=== PATIENT | female | born 1985 | race Caucasian/White ===

== ENCOUNTER → 2017-02-17 | Outpatient (CLI) | payer BC ==
--- NOTE | 2017-02-17 17:02 | US ---
EXAMINATION: Transvaginal obstetric ultrasound HISTORY: Positive test COMPARISON: None TECHNIQUE: Grayscale, color Doppler, and spectral Doppler images obtained transvaginally. FINDINGS: There is a tiny cystic collection within the endometrial stripe likely a very early intrau terine gestational sac. The mean sac diameter measures 0.55 cm, this gives an estimated gestational age of 5 weeks and 1 day. The estimated date of delivery is 10/19/2017. Small cysts are noted within the ovaries bilaterally which otherwise appear normal. There is normal color and spectral Doppler flow. No adnexal masses. IMPRESSION: 1. Probable very early gestational sac within the uterus, corresponding to an estimated gestational age at 5 weeks and 1 day.
== END ==
LOC: MW.US 13:33
PROVIDERS: ATTEND Nurse Practitioner Family
DX: Z32.01 Encounter for pregnancy test, result positive (principal); R10.31 Right lower quadrant pain; Z3A.01 Less than 8 weeks gestation of pregnancy
CPT/HCPCS: 76817; 76817-26

== ENCOUNTER 2017-05-03 21:33 | Emergency (ER) | payer BC ==
[2017-05-03] MEDS ORDERED: Sodium Chloride 0.9% 10 ML Syringe FLUSH PRN (21:38)
[2017-05-03] MEDS ORDERED: Sodium Chloride 0.9% 2.5 ML Syringe FLUSH PRN (21:38)
--- NOTE | 2017-05-03 21:53 | EDM.PDOC ---
ED HPI GENERAL MEDICAL PROBLEM - General Chief Complaint: [employer] Problem Stated Complaint: VAGINAL BLEEDING Time Seen by Provider: 05/03/17 21:49 Source of Information: Reports: Patient History Limitations: Reports: No Limitations - History of Present Illness INITIAL COMMENTS - FREE TEXT/NARRATIVE: HISTORY AND PHYSICAL: [A 42-year-old female who is approximately 14 weeks 4 days into her . Reports abdominal pain since 10:00 this morning] History of Present Illness: [Patient was walking down the [place] at work and pain started to the pelvic area, Pain has been intermittent through the day, now pain is becoming more frequent She reports having clear to whitish discharge] Review of Systems: As per history of present illness and below otherwise all systems reviewed and negative. Past medical history: As per history of present illness and as reviewed below otherwise noncontributory. Surgical history: As per history of present illness and as reviewed below otherwise noncontributory. Social history: No reported history of drug or alcohol abuse. Family history: As per history of present illness and as reviewed below otherwise noncontributory. Physical exam: Alert oriented female who looks quite concerned. Answering questions appropriately HEENT: Atraumatic, normocehpalic, pupils reactive, negative for conjunctival pallor or scleral icterus, mucous membranes moist, throat clear, neck supple, nontender, trachea midline. Lungs: Clear to auscultation, breath sounds equal bilaterally, chest non tender. Heart: S1S2, regular, negative for clicks, rubs, or JVD. Abdomen: Soft, nondistended, nontender. Negative for masses or hepatossplenmegaly. Negative for costovertebral tenderness. Pelvis: Stable nontender. Genitourinary: Normal vaginal vault, cervical os is closed. Clear exudate and white exudate into the vaginal vault Rectal: Deferred Extremities: Atraumatic, negative for cords or calf pain. Neurovascular unremarkable. Neuro: Awake, alert, oriented. Cranial nerves II through XII unremarkable. Cerebellum unremarkable. Motor and sensory unremarkable throughout. Exam nonfocal. Diagnostics: [CBC CMP UA] Therapeutics: [] Impression: [Abdominal cramping] Plan: [] Tylenol for discomfort Followup with your F[employer]MENT K[employer]TER please call tomorrow for an appointment Definitive disposition and diagnosis as appropriate pending reevaluation and review of above. Onset: Today, Sudden Duration: Hour(s): (10 am pain started) Location: Reports: Abdomen Quality: Reports: Ache Severity: Mild Improves with: Reports: None Worsens with: Reports: None Context: Reports: Other (walking down the [place]) - Related Data Allergies Allergy/AdvReac Type Severity Reaction Status Date / Time guaifenesin [From Robitussin] Allergy Hives Verified 07/31/15 22:07 ibuprofen Allergy Hives Verified 07/31/15 22:07 Sulfa (Sulfonamide Allergy Hives Verified 07/31/15 22:07 Antibiotics) sumatriptan [From Imitrex] Allergy Hives Verified 07/31/15 22:07 sumatriptan succinate Allergy Hives Verified 07/31/15 22:07 [From Imitrex] Home Meds: Home Meds Calcium Carbonate [Tums] 200 mg PO ASDIRECTED PRN 07/31/15 [History] Past Medical History HEENT History: Reports: None Cardiovascular History: Reports: None Other Cardiovascular History: heartburn Respiratory History: Reports: None Gastrointestinal History: Reports: GERD Genitourinary History: Reports: None [employer] History: Reports: Other OB/BYN History: LEEP procedure Musculoskeletal History: Reports: Fracture Other Musculoskeletal History: hx of fx right foot Neurological History: Reports: None Psychiatric History: Reports: None Endocrine/Metabolic History: Reports: None Hematologic History: Reports: None Immunologic History: Reports: None Oncologic (Cancer) History: Reports: None Dermatologic History: Reports: None - Infectious Disease History Infectious Disease History: Reports: None - Past Surgical History Head Surgeries/Procedures: Reports: None HEENT Surgical History: Reports: Tonsillectomy Cardiovascular Surgical History: Reports: None Respiratory Surgical History: Reports: None GI Surgical History: Reports: Appendectomy, Cholecystectomy Female Surgical History: Reports: Section Endocrine Surgical History: Reports: None Neurological Surgical History: Reports: None Musculoskeletal Surgical History: Reports: Amputation 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 ED EXAM, GI/ABD - Physical Exam Exam: See Below (See dictation) Course - Vital Signs Last Recorded V/S: Last Vital Signs Temp 36.4 C 05/03/17 21:39 Pulse 94 05/03/17 21:39 Resp 16 05/03/17 21:39 BP 118/80 05/03/17 21:39 Pulse Ox 100 05/03/17 21:39 - Orders/Labs/Meds Orders: Active Orders 24 hr Category Date Time Status CBC WITH AUTO DIFF [HEME] Stat Lab 05/03/17 21:53 Received HCG QUANTITATIVE,SERUM [CHEM] Stat Lab 05/03/17 21:53 Received UA W/MICROSCOPIC [URIN] Stat Lab 05/03/17 21:39 Uncollected Sodium Chloride 0.9% [Saline Flush] Med 05/03/17 21:38 Active 10 ml FLUSH ASDIRECTED PRN Sodium Chloride 0.9% [Saline Flush] Med 05/03/17 21:38 Active 2.5 ml FLUSH ASDIRECTED PRN Saline Lock Insert [OM.PC] Stat Oth 05/03/17 21:38 Ordered Medication Orders Sodium Chloride (Saline Flush) 10 ml FLUSH ASDIRECTED PRN PRN Reason: Keep Vein Open Sodium Chloride (Saline Flush) 2.5 ml FLUSH ASDIRECTED PRN PRN Reason: Keep Vein Open Meds: Medications Generic Name Dose Route Start Last Admin Trade Name Freq PRN Reason Stop Dose Admin Sodium Chloride 10 ml 05/03/17 21:38 Saline Flush FLUSH ASDIRECTED PRN Keep Vein Open Sodium Chloride 2.5 ml 05/03/17 21:38 Saline Flush FLUSH ASDIRECTED PRN Keep Vein Open Departure - Departure Time of Disposition: 22:04 Disposition: Home, Self-Care 01 Condition: good Clinical Impression: Abdominal cramping - Discharge Information Forms: ED Department Discharge Additional Instructions: The following information is given to patients seen in the emergency department who are being discharged to home. This information is to outline your options for follow-up care. We provide all patients seen in our emergency department with a follow-up referral. The need for follow-up, as well as the timing and circumstances, are variable depending upon the specifics of your emergency department visit. If you don't have a primary care physician on staff, we will provide you with a referral. We always advise you to contact your personal physician following an emergency department visit to inform them of the circumstance of the visit and for follow-up with them and/or the need for any referrals to a consulting specialist. The emergency department will also refer you to a specialist when appropriate. This referral assures that you have the opportunity for followup care with a specialist. All of these measure are taken in an effort to provide you with optimal care, which includes your followup. Under all circumstances we always encourage you to contact your private physician who remains a resource for coordinating your care. When calling for followup care, please make the office aware that this follow-up is from your recent emergency room visit. If for any reason you are refused follow-up, please contact the [facility] emergency department at and asked to speak to the emergency department charge nurse. Followup with her [employer]MENT [employer]TER tomorrow [facility] [address] [place] [id number] - My Orders Last 24 Hours: My Active Orders 05/03/17 21:38 Sodium Chloride 0.9% [Saline Flush] 10 ml FLUSH ASDIRECTED PRN Sodium Chloride 0.9% [Saline Flush] 2.5 ml FLUSH ASDIRECTED PRN Saline Lock Insert [OM.PC] Stat 05/03/17 21:39 UA W/MICROSCOPIC [URIN] Stat 05/03/17 21:53 CBC WITH AUTO DIFF [HEME] Stat HCG QUANTITATIVE,SERUM [CHEM] Stat - Assessment/Plan Last 24 Hours: My Active Orders 05/03/17 21:38 Sodium Chloride 0.9% [Saline Flush] 10 ml FLUSH ASDIRECTED PRN Sodium Chloride 0.9% [Saline Flush] 2.5 ml FLUSH ASDIRECTED PRN Saline Lock Insert [OM.PC] Stat 05/03/17 21:39 UA W/MICROSCOPIC [URIN] Stat 05/03/17 21:53 CBC WITH AUTO DIFF [HEME] Stat HCG QUANTITATIVE,SERUM [CHEM] Stat
[2017-05-04 00:20] VITALS: BP 112/67
== END 2017-05-03 23:50 | disposition home or self-care (01) ==
LOC: MW.ED 21:33
DX: O99.89 Other specified diseases and conditions complicating pregnancy, childbirth and the puerperium (principal); R10.2 Pelvic and perineal pain; O99.612 Diseases of the digestive system complicating pregnancy, second trimester; K21.9 Gastro-esophageal reflux disease without esophagitis; O99.332 Smoking (tobacco) complicating pregnancy, second trimester; F17.210 Nicotine dependence, cigarettes, uncomplicated; Z90.49 Acquired absence of other specified parts of digestive tract; Z98.890 Other specified postprocedural states; Z89.022 Acquired absence of left finger(s); Z88.2 Allergy status to sulfonamides; Z88.8 Allergy status to other drugs, medicaments and biological substances; Z3A.14 14 weeks gestation of pregnancy
CPT/HCPCS: 36415; 81001; 84702; 85025; 99283; 99284